=== PATIENT | male | born 1955 | race African-American/Black ===

== ENCOUNTER 2017-01-03 10:10 | Emergency (ER) | payer MEDICAID ==
[~2017-01-03] VITALS: Ht 190.5 cm; Wt 160.0 kg
[~2017-01-03 10:10] MED LIST: CIAL10TA PO; HYDR-3583 PO
[2017-01-03 10:13] VITALS: BP 128/80; PULSE 68; RESP 16; TEMP 98.7; O2SAT 94
[2017-01-03 10:23] VITALS: BP 133/63; PULSE 61; RESP 14; O2SAT 94
--- NOTE | 2017-01-03 10:23 | PD ---
HPI Chief Complaint: ENT Complaint Time Seen by Provider: 10:22 Travel History International Travel<30 days: No Contact w/Intl Traveler<30days: No Traveled to known affect area: No History of Present Illness HPI 61 YO M presents to the ED for evaluation of a 5 day history of pain and swelling of the left side of the neck. Patient states he awoke on Friday with the pain. He states that over the last few days he has passed a few "teeth" from under the left side of his tongue. He denies fever, chills, nausea, vomiting, difficulty swallowing, airway problems. No treatment attempted at home. PFSH Past Medical History Diabetes: Yes Social History Alcohol Use: No Tobacco Use: Yes (07/08 ppd) Substance Use: Yes (thc) Allergies-Medications (Allergen,Severity, Reaction): Coded Allergies: No Known Allergies (Verified , 01/03/17) Reported Meds & Prescriptions Reported Meds & Active Scripts Active Tylenol (Acetaminophen) 325 Mg Tab 650 Mg PO Q6H PRN Augmentin (Amoxicillin-Clavulanate) 875-125 Mg Tab 1 Tab PO BID Hydrocodone-Acetaminophen 10-325 mg Tab 1 Tab PO Q6H PRN Reported Fish Oil ([place]-3 Fatty Acids) 1,000 Mg Cap Aspirin 81 (Aspirin) 81 Mg Tabdr 81 Mg PO DAILY Hydrochlorothiazide 25 Mg Tab 25 Mg PO DAILY Amlodipine (Amlodipine Besylate) 10 Mg Tab 10 Mg PO DAILY Lisinopril 40 Mg Tab 40 Mg PO DAILY Atenolol 50 Mg Tab 50 Mg PO DAILY Gabapentin 300 Mg Cap 300 Mg PO BID Review of Systems Except as stated in HPI: all other systems reviewed are Neg Physical Exam Narrative GENERAL: Well-nourished, well-developed obese black male in no acute distress. SKIN: Warm and dry. HEAD: Normocephalic. Atraumatic. EYES: No scleral icterus. No injection or drainage. PERRLA. EOMI. ENT: Pearly gtz tympanic membranes bilaterally. Nasal mucosa is moist. Oropharynx without erythema, edema or exudate. NECK: Supple, trachea midline. No JVD or lymphadenopathy. The left submandibular gland is firm and tender, measuring ~1.5 cm x 3 cm. No warmth or erythema. CARDIOVASCULAR: Regular rate and rhythm without murmurs, gallops, or rubs. RESPIRATORY: Breath sounds clear and equal bilaterally. No accessory muscle use. GASTROINTESTINAL: Abdomen soft, non-tender, nondistended. + Bowel sounds MUSCULOSKELETAL: No cyanosis, or edema. Ambulatory with a cane. BACK: Nontender without obvious deformity. No CVA tenderness. Data Data Last Documented VS Vital Signs Date Time Temp Pulse Resp B/P Pulse Ox O2 Delivery O2 Flow Rate FiO2 01/03/17 10:23 61 14 133/63 94 Room Air 01/03/17 10:13 98.7 MDM Medical Decision Making Medical Screen Exam Complete: Yes Emergency Medical Condition: Yes Differential Diagnosis Sialoadenitis versus sialolith versus tonsillitis versus abscess versus other Narrative Course 61 YO M presents to the ED for evaluation of a 5 day history of pain and swelling of the left side of the neck. Patient states he awoke on Friday with the pain. He states that over the last few days he has passed a few "teeth" from under the left side of his tongue. He denies fever, chills, nausea, vomiting, difficulty swallowing, airway problems. Vitals reviewed. The patient has a paper towel containing 5 or 6 0.5 cm sialoliths. This is sialoliths tinnitus. Patient was prescribed 10 days of Augmentin, instructed to suck on sour candies, utilize warm compresses and massage to help pass future sialoliths and avoid Trina's duct blockage. He has a follow-up appointment with his primary care in 6 days. He indicated understanding of the instructions and is agreeable to the care plan. He is stable and discharged home. Diagnosis Primary Impression: Sialadenitis Referrals: Ear / Nose / Throat Specialist Primary Care Physician Patient Instructions: General Instructions, Sialoadenitis (ED) Additional Instructions: Rest, hydrate. Take antibiotics as prescribed, even if symptoms resolve. Massage of the duct, warm compresses and stimulation of the salivary glands with sour candy as discussed. Follow-up with the primary care provider or the search and rescue officer. Return to the ED for any urgent or emergent medical condition. Med/Other Pt SpecificInfo: Prescription(s) given Scripts Acetaminophen (Tylenol)325 Mg [id number] Mg PO Q6H PRN (PAIN SCALE 1 TO 10) #21 TAB Ref 0 Prov:Kallie Moore MD 01/03/17 Amoxicillin-Clavulanate (Augmentin)875-125 Mg Tab1 Tab PO BID #10 TAB Ref 0 Prov:Kallie Moore MD 01/03/17 Disposition: 01 DISCHARGE HOME Condition: Stable Loreta Lewis Jan 03, 2017 10:23
--- NOTE | 2017-01-03 10:30 | PD ---
Data Data Last Documented VS Vital Signs Date Time Temp Pulse Resp B/P Pulse Ox O2 Delivery O2 Flow Rate FiO2 01/03/17 10:23 61 14 133/63 94 Room Air 01/03/17 10:13 98.7 MDM Supervised Visit with FABIOLA: Yes Narrative Course I, Dr. Moore, have reviewed the advance practice practioner's documentation and am in agreement, met with the patient face to face, made the diagnosis, and the medical decision making was done by me. *My assessment and Findings: 61-year-old male with 5 days of left-sided neck swelling. Patient presents with several, 3-4 large salivary duct stones that he has passed in the interim. States that since passing the stones from the oropharynx that the swelling on the left side of the neck has gone down. He does have slight left-sided submandibular swelling but no swelling in the posterior pharynx, the floor the mouth is soft, and no thyroidomegaly. History is consistent with sialadenitis. Patient reassured and discharged home with outpatient PCP follow-up. Kallie Moore MD Jan 03, 2017 10:30
[2017-01-03] MEDS ORDERED: LISI40TA PO (10:35)
[2017-01-03] MEDS ORDERED: GABA300C5 PO (10:35)
[2017-01-03] MEDS ORDERED: HYDR25TA5 PO (10:35)
[2017-01-03] MEDS ORDERED: FISH1000 (10:35)
[2017-01-03] MEDS ORDERED: ATEN50TA PO (10:35)
[2017-01-03] MEDS ORDERED: ASPI-110 PO (10:35)
[2017-01-03] MEDS ORDERED: AMLO10TA2 PO (10:35)
[2017-01-03] MEDS ORDERED: AUGM875T3 PO (10:39)
[2017-01-03] MEDS ORDERED: TYLE325T PO (10:39)
== END 2017-01-03 10:48 | disposition home or self-care (01) ==
LOC: NEPD 10:10
DX: K11.20 Sialoadenitis, unspecified (principal); E11.9 Type 2 diabetes mellitus without complications; F17.200 Nicotine dependence, unspecified, uncomplicated; Z79.82 Long term (current) use of aspirin; Z79.899 Other long term (current) drug therapy
CPT/HCPCS: 99283